=== PATIENT | male | born 1970 | race Caucasian/White ===

== ENCOUNTER 2016-12-29 18:50 | Emergency (ER) | payer OTHER ==
[~2016-12-29] VITALS: Ht 172.7 cm; Wt 119.8 kg
[~2016-12-29 18:50] MED LIST: AIDE PO; OMEG10007 PO
[2016-12-29 18:53] VITALS: TEMP 36.4; Ht 172.7 cm; Wt 119.8 kg
--- NOTE | 2016-12-29 19:55 | DIAGNOSTIC IMAGING REPORT ---
LEFT ELBOW 3 VIEWS CLINICAL HISTORY: Fall with left elbow pain. FINDINGS: 3 views of left elbow are obtained. No prior studies are available for comparison at the time of dictation. The Skeletal structures are well mineralized. There is no radiographic evidence of left elbow fracture. The joint spaces are preserved. No joint effusion is seen. There is a large enthesophyte is the triceps insertion. Enthesophytes are also seen arising from the humeral epicondyles. Spurring is seen along the medial aspect of the joint space and the radial head. Dorsal soft tissue swelling is identified. IMPRESSION: 1. Soft tissue swelling with no radiographic evidence of left elbow fracture. 2. Degenerative change as above. Electronically signed by: Geovani Morris M.D. 12/29/2016 7:54 PM Dictated Date/Time: 12/29/2016 7:52 PM
--- NOTE | 2016-12-29 20:01 | DIAGNOSTIC IMAGING REPORT ---
PA CHEST WITH LEFT-SIDED RIB SERIES CLINICAL HISTORY: Fall. Left-sided chest wall pain. FINDINGS: A PA chest radiograph with 5 additional views from a left-sided rib series is compared to chest x-ray and chest CT dated 01/14/2013. The heart is top normal for projection. The mediastinal contour is within normal limits. The lungs and pleural spaces are clear. No pneumothorax is seen. There is no radiographic evidence of left-sided rib fracture on the rib series as clinically queried. The remainder of the bony thorax is grossly intact. IMPRESSION: 1. The lungs are clear. 2. There is no radiographic evidence of left-sided rib fracture as clinically queried. Electronically signed by: Geovani Morris M.D. 12/29/2016 8:00 PM Dictated Date/Time: 12/29/2016 7:57 PM
--- NOTE | 2016-12-29 20:03 | DIAGNOSTIC IMAGING REPORT ---
LEFT WRIST 5 VIEWS CLINICAL HISTORY: Fall with left wrist pain. FINDINGS: 5 views of left wrist are obtained. No prior studies are available for comparison at the time of dictation. The Skeletal structures are well mineralized. No fracture is seen. The joint spaces of the wrist are well-maintained. Mild soft tissue swelling is noted. IMPRESSION: Soft tissue swelling with no radiographic evidence of left wrist fracture. Electronically signed by: Geovani Morris M.D. 12/29/2016 8:01 PM Dictated Date/Time: 12/29/2016 8:00 PM
[2016-12-29 20:28] VITALS: BP 158/110; PULSE 81; O2SAT 98
--- NOTE | 2016-12-29 20:28 | EMERGENCY ROOM VISIT NOTE ---
History First contact with patient: 19:01 Chief Complaint: FALL Stated Complaint: THINKS BROKE WRIST History of Present Illness The patient is a 46 year old male who presents to the Emergency Room with complaints of left wrist, elbow and left rib pain. The patient reports that he fell approximately 8 foot to a concrete floor from a 12 foot stepladder. He attempted to catch his fall with his left arm outstretched. The patient reports immediate left rib pain with shortness of breath that lasted approximately 2 minutes. Since that time, the patient denies any shortness of breath. He only has rib pain with movement, and denies any worsening pain with deep breathing. The patient has had rib fractures in the past, and reports pain is insignificant compared to his prior fractures. The patient reports that immediately he did not have any left wrist pain, but has since had developing swelling and stiffness of the wrist, rating his discomfort a 6 out of 10. He also reports mild left elbow pain. He denies head injury, neck pain , back pain or other extremity injuries. The patient is [id number]. Review of Systems 10 system review was performed and was negative except for pertinent positives and negatives as indicated in history of present illness Past Medical/Surgical History Medical Problems: (1) Hypertension Nos Surgical Problems: (1) No history of previous surgery Family History FH: cancer FH: diabetes mellitus FH: heart disease FH: hypertension Social History Smoking Status: Former Smoker Alcohol Use: none Drug Use: none Marital Status: single Occupation Status: employed Current/Historical Medications No Active Prescriptions or Reported Meds Allergies Coded Allergies: No Known Allergies (Unverified , 12/29/16) Physical Exam Vital Signs Date Time Temp Pulse Resp B/P (MAP) Pulse Ox O2 Delivery O2 Flow Rate FiO2 12/29/16 18:53 36.4 81 18 193/120 96 Room Air Physical Exam CONSTITUTIONAL: Healthy and well nourished. Alert and oriented X 3 with positive affect. Patient does not appear in any acute distress. HEENT: Normocephalic, atraumatic. Pupils equal, round and reactive. No epistaxis, subconjunctival hemorrhage or hemotympanum. NECK: Full active range of motion without discomfort. RESPIRATORY: Clear to auscultation bilaterally with no wheezing, crackles, rhonchi or stridor. No worsening pain with deep breathing. CARDIOVASCULAR: Regular rate and rhythm with no murmurs, rubs or gallops. GASTROINTESTINAL: Bowel sounds present in all quadrants. Soft and nontender to palpation. MUSCULOSKELETAL: Examination shows mild edema of the left wrist without any open wounds, deformity or ecchymosis. Range of motion of the wrist worsens his discomfort. He has no focal anatomic snuffbox tenderness. Patient is able to flex and extend the left elbow without significant discomfort. He does have mild pain with pronation and supination. No tenderness to palpation about the left shoulder. Distal pulses are intact. The patient also has generalized left lateral rib discomfort without subcutaneous emphysema or flail segment. As to palpation through the thoracolumbar spine. INTEGUMENTARY: No rash or other significant dermatologic conditions noted. NEUROLOGIC: Left hand and fingers are sensory intact. Medical Decision & Procedures ER Provider Diagnostic Interpretation: My interpretation of left wrist x-rays does not show any obvious fractures or dislocation. Radiologist report is as follows: LEFT WRIST 5 VIEWS CLINICAL HISTORY: Fall with left wrist pain. FINDINGS: 5 views of left wrist are obtained. No prior studies are available for comparison at the time of dictation. The Skeletal structures are well mineralized. No fracture is seen. The joint spaces of the wrist are well-maintained. Mild soft tissue swelling is noted. IMPRESSION: Soft tissue swelling with no radiographic evidence of left wrist fracture. My interpretation of left elbow x-rays does not show any obvious fractures or dislocation. Radiologist report is as follows: LEFT ELBOW 3 VIEWS CLINICAL HISTORY: Fall with left elbow pain. FINDINGS: 3 views of left elbow are obtained. No prior studies are available for comparison at the time of dictation. The Skeletal structures are well mineralized. There is no radiographic evidence of left elbow fracture. The joint spaces are preserved. No joint effusion is seen. There is a large enthesophyte is the triceps insertion. Enthesophytes are also seen arising from the humeral epicondyles. Spurring is seen along the medial aspect of the joint space and the radial head. Dorsal soft tissue swelling is identified. IMPRESSION: 1. Soft tissue swelling with no radiographic evidence of left elbow fracture. 2. Degenerative change as above. My interpretation of left rib x-rays with a PA chest view does not show any obvious fractures or pneumothorax. Radiologist report is as follows: PA CHEST WITH LEFT-SIDED RIB SERIES CLINICAL HISTORY: Fall. Left-sided chest wall pain. FINDINGS: A PA chest radiograph with 5 additional views from a left-sided rib series is compared to chest x-ray and chest CT dated 01/14/2013. The heart is top normal for projection. The mediastinal contour is within normal limits. The lungs and pleural spaces are clear. No pneumothorax is seen. There is no radiographic evidence of left-sided rib fracture on the rib series as clinically queried. The remainder of the bony thorax is grossly intact. IMPRESSION: 1. The lungs are clear. 2. There is no radiographic evidence of left-sided rib fracture as clinically queried. ED Course Patient history and physical exam were performed. Nurse's notes were reviewed. Vital signs were reviewed, showing an elevated blood pressure of 193/120. The patient reports that he has taken blood pressure medications in the past, but has not done so in the past 5 years. The patient refused any analgesics on initial exam. X-rays of the left ribs with PA chest view, along with a left elbow x-ray and left wrist x-ray were normal. A wrist lacer was applied. The patient was encouraged to wear the brace when active and working. Otherwise he was instructed to perform gentle range of motion exercises to prevent stiffness. Ice and elevation for swelling. Ibuprofen and Tylenol as needed for additional pain relief. The patient was instructed to follow-up with his Worker's Compensation approved orthopedic surgeon if symptoms are not improving within the next 3-5 days. The patient was happy with plan of care, voiced understanding of all discharge instructions, and rated his pain a 4 out of 10 at the conclusion of my exam. Medical Decision Impression Primary Impression: Left wrist sprain Additional Impressions: Contusion of rib on left side Left elbow contusion Fall from ladder Work related injury Departure Information Prescriptions No Active Prescriptions or Reported Meds Referrals No Doctor, Assigned (PCP) Patient Instructions My [facility] Problem Qualifiers Primary Impression: Left wrist sprain Encounter type: initial encounter Qualified Codes: S63.502A - Unspecified sprain of left wrist, initial encounter Additional Impressions: Contusion of rib on left side Encounter type: initial encounter Qualified Codes: S20.212A - Contusion of left front wall of thorax, initial encounter Fall from ladder Encounter type: initial encounter Qualified Codes: W11.XXXA - Fall on and from ladder, initial encounter
== END 2016-12-29 20:28 | disposition home or self-care (01) ==
LOC: C.EDB 18:51 → C.EDC 20:28
DX: S63.502A Unspecified sprain of left wrist, initial encounter (principal); S20.212A Contusion of left front wall of thorax, initial encounter; S50.02XA Contusion of left elbow, initial encounter; W11.XXXA Fall on and from ladder, initial encounter; Y99.0 Civilian activity done for income or pay; Z82.49 Family history of ischemic heart disease and other diseases of the circulatory system; Z83.3 Family history of diabetes mellitus; Z87.891 Personal history of nicotine dependence; I10 Essential (primary) hypertension